=== PATIENT | male | born 1980 | race Caucasian/White ===

== ENCOUNTER → 2019-11-18 15:37 | Outpatient (CLI) | payer OTHER, MEDICAID, SELFPAY ==
--- NOTE | 2019-11-18 | DI.MRI.S_ITS ---
PROCEDURE: MR HEAD/BRAIN WO CON INDICATIONS: DIZZINESS AND GIDDINESS TECHNIQUE: Noncontrast axial T1 spin echo, axial T2 fast spin echo, sagittal and axial FLAIR, coronal T2 fast spin echo, axial gradient echo, axial diffusion and ADC through the brain. COMPARISON: None. FINDINGS: Image quality: Excellent. CSF Spaces: Basal cisterns are patent. No extra-axial fluid collections. Ventricles are normal in size and shape. Brain: There is no brain parenchymal diffusion or flair signal abnormality. No evidence of intracranial mass. The major intracranial vascular flow related signal voids are maintained. Skull and face: Calvarium has normal marrow signal. Orbits appear normal. Sinuses: Sinuses and mastoids are predominantly clear. IMPRESSION: No acute intracranial or intracranial mass lesion. No finding to explain symptoms. Dictated by: Ja Smith M.D. on 11/18/2019 at 16:38 Approved by: Ja Smith M.D. on 11/18/2019 at 16:52
== END ==
PROVIDERS: PCP Family Medicine; Referring Provider Family Medicine; Visit Provider Family Medicine
DX: R42 Dizziness and giddiness (principal)
CPT/HCPCS: 70551

== ENCOUNTER 2023-01-09 15:39 | Emergency (ER) | payer SELFPAY ==
[2023-01-09] VITALS (8 sets, daily range): BP systolic 146–177; BP diastolic 95–116; PULSE 58–80; RESP 19; TEMP 36.9; O2SAT 95–100; BMI 44.5
[2023-01-09 16:45] LABS: Add Manual Diff / Slide Review NO; Basophils Absolute Auto 100 /uL (0-100); Basophils Percent Auto 1.2 % (0-2); Eosinophils Absolute Auto 100 /uL (0-450); Eosinophils Percent Auto 0.8 % (2-4); Hematocrit 45.2 % (41-53); Hemoglobin 15.9 g/dL (13.5-17.5); Lymphocytes Absolute Auto 3100 /uL (1100-4500); Lymphocytes Percent Auto 37.4 % (25-40); Mean Corpuscular HGB Conc 35.1 % (30-36); Mean Corpuscular Hemoglobin 30.2 PG (26-34); Mean Corpuscular Volume 86.2 fL (80-100); Monocytes Absolute Auto 600 /uL (0-900); Monocytes Percent Auto 7.3 % (3-14); Neutrophils Absolute Auto 4400 /uL (1500-7000); Neutrophils Percent Auto 53.3 % (50-75); Platelet Count 195 X10^3/uL (150-400); Red Blood Cell Count 5.24 X10^6/uL (4.5-5.9); Red Cell Distribution Width 13.7 % (11.6-14.8); White Blood Cell Count 8.4 X10^3/uL (4.5-11.0)
[2023-01-09 16:57] LABS: Alanine Aminotransferase 33 IU/L (<50); Albumin 4.5 g/dL (3.5-5.0); Albumin Globulin Ratio 1.4 (1.0-2.8); Alkaline Phosphatase 57 U/L (38-126); Aspartate Aminotransferase 30 IU/L (17-59); BUN Creatinine Ratio 21.3 (6-22); Bilirubin Total 0.7 mg/dL (0.2-1.3); Blood Urea Nitrogen 16 mg/dL (9-20); Calcium 9.3 mg/dL (8.4-10.2); Carbon Dioxide 27 mmol/L (22-32); Chloride 104 mmol/L (98-107); Estimated Glomerular Filt Rate > 60 mL/min (>60); Globulin 3.3 g/dL (1.7-4.1); Glucose 96 mg/dL (70-100); HEMOLYSIS < 15 (0-50); Lipase 25 U/L (23-300); Potassium 3.3 mmol/L (3.4-5.1); Sodium 140 mmol/L (137-145); Total Protein 7.8 g/dL (6.3-8.2)
--- NOTE | 2023-01-09 20:23 | ED_ITS ---
HPI - General Adult General Chief complaint: Abdominal Pain Stated complaint: Upper ABD discomfort Time Seen by Provider: 01/09/23 20:02 Source: patient Mode of arrival: Family Vehicle History of Present Illness HPI narrative: Patient is a 42-year-old male who several months ago had some numbness in his upper abdomen and he thought that there was a mass in the area. Over the past couple days he is noticed decrease in oral intake. He states he just has not had an appetite. Is also burping quite a bit. No change in stool. No shortn ess of breath or chest pain. No prior abdominal surgeries. Pain is in his upper abdomen. Does not feel like it is necessarily worse with eating. Has not tried anything for the symptoms prior to arrival. Review of Systems Constitutional Constitutional: Reports system reviewed and no additional complaints, except as documented Cardiovascular Cardiovascular: Reports system reviewed and no additional complaints, except as documented Respiratory Respiratory: Reports system reviewed and no additional complaints, except as documented Gastrointestinal Gastrointestinal: Reports system reviewed and no additional complaints, except as documented Integumentary/Breasts Skin/Breast: Reports system reviewed and no additional complaints, except as documented Neurologic Neurologic: Reports system reviewed and no additional complaints, except as documented Hematologic/Lymphatic On Anticoagulants: No Patient History Social History Smoking Status: Current every day smoker Smoking Status: Current every day smoker tobacco type: cigarettes alcohol intake frequency: 0-2 drinks per day Substance Use Type: marijuana Exam Initial Vital Signs Initial Vital Signs: Vital Signs Temperature 98.5 F 01/09/23 16:06 Pulse Rate 80 01/09/23 16:06 Respiratory Rate 19 01/09/23 16:06 Blood Pressure 165/109 H 01/09/23 16:06 Pulse Oximetry 100 01/09/23 16:06 Oxygen Delivery Method Room Air 01/09/23 16:06 Const General: cooperative, comfortable and No ill appearing GI Inspection: normal to inspection and non-distended Palpation: soft, No firm and tender (Upper) Skin General: no rashes or lesions noted Neuro General: patient alert, patient awake and moves all extremities Extrem General: capillary refill normal Course Orders Ordered: ED Orders 01/09/23 20:24 CT abdomen pelvis w con Stat Discontinued Medications Ondansetron HCl (Ondansetron 4 Mg Odt) 4 mg PO NOW PRN PRN Reason: Nausea And Vomiting Ondansetron HCl (Ondansetron 4 Mg/2 Ml Inj) 4 mg IV NOW PRN PRN Reason: Nausea And Vomiting Vital Signs Vital signs: Vital Signs - 8 hr 01/09/23 20:27 01/09/23 20:28 01/09/23 20:28 Pulse Rate 60 Blood Pressure 177/111 H Pulse Oximetry 100 99 Oxygen Delivery Method Room Air Room Air 01/09/23 20:30 01/09/23 20:30 01/09/23 20:56 Pulse Rate 68 Blood Pressure 176/116 H 156/99 H Pulse Oximetry 98 Oxygen Delivery Method Room Air 01/09/23 20:56 01/09/23 21:00 01/09/23 21:00 Pulse Rate 67 65 Blood Pressure 165/102 H Pulse Oximetry 95 97 Oxygen Delivery Method Room Air Room Air 01/09/23 21:30 01/09/23 21:31 01/09/23 21:31 Pulse Rate 65 58 L Blood Pressure 146/95 H Pulse Oximetry 96 97 Oxygen Delivery Method Room Air Medical Decision Making Lab Data Lab results reviewed: Yes I reviewed the patient's lab results. 01/09/23 16:30 01/09/23 16:30 Labs: Lab Results 01/09/23 01/09/23 Range/Units 16:30 16:30 WBC 8.4 (4.5-11.0) X10^3/uL RBC 5.24 (4.5-5.9) X10^6/uL Hgb 15.9 (13.5-17.5) g/dL Hct 45.2 (41-53) % MCV 86.2 (80-100) fL MCH 30.2 (26-34) PG MCHC 35.1 (30-36) % RDW 13.7 (11.6-14.8) % Plt Count 195 (150-400) X10^3/uL Neut % (Auto) 53.3 (50-75) % Lymph % (Auto) 37.4 (25-40) % [place] % (Auto) 7.3 (3-14) % Eos % (Auto) 0.8 L (2-4) % Baso % (Auto) 1.2 (0-2) % Neut # (Auto) 4400 (2693-5626) /uL Lymph # (Auto) 3100 (4181-5327) /uL [place] # (Auto) 600 (0-900) /uL Eos # (Auto) 100 (0-450) /uL Baso # (Auto) 100 (0-100) /uL Sodium 140 (137-145) mmol/L Potassium 3.3 L (3.4-5.1) mmol/L Chloride 104 (98-107) mmol/L Carbon Dioxide 27 (22-32) mmol/L BUN 16 (9-20) mg/dL Creatinine 0.75 (0.66-1.25) mg/dL Estimated GFR > 60 (>60) mL/min BUN/Creatinine Ratio 21.3 (6-22) Glucose 96 (70-100) mg/dL Calcium 9.3 (8.4-10.2) mg/dL Total Bilirubin 0.7 (0.2-1.3) mg/dL AST 30 (17-59) IU/L ALT 33 (<50) IU/L Alkaline Phosphatase 57 (38-126) U/L Total Protein 7.8 (6.3-8.2) g/dL Albumin 4.5 (3.5-5.0) g/dL Globulin 3.3 (1.7-4.1) g/dL Albumin/Globulin Ratio 1.4 (1.0-2.8) Lipase 25 (23-300) U/L Imaging Data CT scan - abdomen/pelvis: Radiologist's Impression: PROCEDURE:? CT ABDOMEN PELVIS W CON ? INDICATIONS:? Upper abdominal pain with distention ? TECHNIQUE:? After the administration of IV contrast, axial sections were acquired from the lung bases to the pubic symphysis.? Coronal and sagittal reformats were performed.? For radiation dose reduction, the following was used:? automated exposure control, adjustment of mA and/or kV according to patient size. ? COMPARISON:? None. ? FINDINGS:? Image quality:? Excellent.? ? Lung bases:? There is minimal dependent atelectasis.? ? Heart:? Heart is normal in size. ? ? ABDOMEN: Liver:? No mass lesion. Gallbladder:? Within normal limits without calcified gallstones.? ? Biliary ducts:? No biliary ductal dilatation.? ? Pancreas:? There is mild fatty atrophy in the pancreatic head and uncinate process.? No discrete mass identified.? No peripancreatic fat stranding or fluid.? ? Spleen:? Normal in size.? ? Adrenal Glands:? No adrenal nodules.? ? Kidneys and Ureters:? No hydronephrosis.? ? ? Stomach and Bowel:? Stomach, small bowel loops, and colon are normal in caliber and wall thickness.? The appendix is normal.? Peritoneum:? No abnormal intraperitoneal fluid.? No free air.? ? Ventral Wall: ? No hernia.? Abdominal Nodes:? No retroperitoneal or mesenteric adenopathy by size criteria.? Vessels:? Aorta and inferior vena cava are normal in size.? ? PELVIS: Pelvic Organs:? Unremarkable.? ? Bladder:? Unremarkable.? ? Pelvic Nodes: No enlarged lymph nodes.? Miscellaneous: No inguinal hernias are seen. ? ? ? Bones:? Visualized osseous structures demonstrate no suspicious focal lesions. ? IMPRESSION:? ? 1. No definite acute intra-abdominal abnormality.? MDM Narrative Medical decision making narrative: Patient does have a benign exam and unremarkable labs. CT scan shows no acute pathology low suspicion for gallbladder pathology. Patient potentially could have stomach ulcer/reflux disease. Will start him on a PPI. If his symptoms do not improve with this he will need follow-up with his primary doctor to discuss a referral to see General surgery. Will discharge patient home. He was given return precautions. He expressed understanding and agreement. Discharge Plan Departure Patient Disposition: Home Clinical Impression: Abdominal pain Instructions: DI for Abdominal Pain-Adult Activity Restrictions/Additional Instructions: I do recommend that you start taking a class of medicines called a proton pump inhibitor. Can purchase these [id number]. Examples include Nexium, Prilosec, omeprazole. Also recommend that you talk with your primary doctor about a referral for an upper endoscopy specifically if the symptoms continue. Return to the emergency department for worsening symptoms. Referrals: Doctor Ochoa MD [Primary Care Provider] - Stand Alone Forms: Patient Portal/API
--- NOTE | 2023-01-09 20:24 | DI.CT.S_ITS ---
PROCEDURE: CT ABDOMEN PELVIS W CON INDICATIONS: Upper abdominal pain with distention TECHNIQUE: After the administration of IV contrast, axial sections were acquired from the lung bases to the pubic symphysis. Coronal and sagittal reformats were performed. For radiation dose reduction, the following was used: automated exposure control, adjustment of mA and/or kV according to patient size. COMPARISON: None. FINDINGS: Image quality: Excellent. Lung bases: There is minimal dependent atelectasis. Heart: Heart is normal in size. ABDOMEN: Liver: No mass lesion. Gallbladder: Within normal limits without calcified gallstones. Biliary ducts: No biliary ductal dilatation. Pancreas: There is mild fatty atrophy in the pancreatic head and uncinate process. No discrete mass identified. No peripancreatic fat stranding or fluid. Spleen: Normal in size. Adrenal Glands: No adrenal nodules. Kidneys and Ureters: No hydronephrosis. Stomach and Bowel: Stomach, small bowel loops, and colon are normal in caliber and wall thickness. The appendix is normal. Peritoneum: No abnormal intraperitoneal fluid. No free air. Ventral Wall: No hernia. Abdominal Nodes: No retroperitoneal or mesenteric adenopathy by size criteria. Vessels: Aorta and inferior vena cava are normal in size. PELVIS: Pelvic Organs: Unremarkable. Bladder: Unremarkable. Pelvic Nodes: No enlarged lymph nodes. Miscellaneous: No inguinal hernias are seen. Bones: Visualized osseous structures demonstrate no suspicious focal lesions. IMPRESSION: 1. No definite acute intra-abdominal abnormality. Dictated by: Pablo Humphrey M.D. on 01/09/2023 at 21:27 Approved by: Pablo Humphrey M.D. on 01/09/2023 at 21:29
== END 2023-01-09 21:50 | disposition home or self-care (01) ==
PROVIDERS: Emergency Medicine; Emergency Provider Emergency Medicine
DX: R10.10 Upper abdominal pain, unspecified (principal)
CPT/HCPCS: 36415; 74177; 80053; 83690; 85025; 99284; Q9967